=== PATIENT | male | born 1980 | race Two or more races ===

== ENCOUNTER 2018-12-28 08:51 | Emergency (ER) | payer SELFPAY ==
--- NOTE | 2018-12-28 10:05 | ER Document Report ---
ED General - General Chief Complaint: Penile Pain Stated Complaint: PENILE PAIN Primary Care Provider: [facility] [Provider Group] - Follow up as needed - HPI Patient complains to provider of: Penile pain Notes: Patient coming in for evaluation of penile pain. Patient has states ongoing pain with urination along with discharge. Patient states he is sexually active. Patient also states that he is diabetic. Patient denies any other fevers chills nausea vomiting diarrhea. Patient is mostly speaking at this time family is at bedside translating for the patient. - Related Data Allergies/Adverse Reactions: No Known Allergies Allergy (Verified 12/28/18 09:39) Past Medical History - Social History Smoking Status: Never Smoker Chew tobacco use (# tins/day): No Frequency of alcohol use: None Drug Abuse: None Family History: Reviewed & Not Pertinent Patient has suicidal ideation: No Patient has homicidal ideation: No Endocrine Medical History: Reports: Hx Diabetes Mellitus Type 2 Renal/ Medical History: Denies: Hx Peritoneal Dialysis Review of Systems - Review of Systems Constitutional: No symptoms reported EENT: No symptoms reported Cardiovascular: No symptoms reported Respiratory: No symptoms reported Gastrointestinal: No symptoms reported Genitourinary: Other - Penile pain Male Genitourinary: No symptoms reported Musculoskeletal: No symptoms reported Skin: No symptoms reported Hematologic/Lymphatic: No symptoms reported Neurological/Psychological: No symptoms reported -: Yes All other systems reviewed and negative Physical Exam - Vital signs Vitals: Temp Pulse Resp BP Pulse Ox 98.4 F 99 18 146/95 H 97 12/28/18 08:55 12/28/18 08:55 12/28/18 08:55 12/28/18 08:55 12/28/18 08:55 Interpretation: Normal - General General appearance: Appears well, Alert - HEENT Head: Normocephalic, Atraumatic Eyes: Normal Pupils: PERRL - Respiratory Respiratory status: No respiratory distress Chest status: Nontender Breath sounds: Normal Chest palpation: Normal - Cardiovascular Rhythm: Regular Heart sounds: Normal auscultation Murmur: No - Abdominal Inspection: Normal Distension: No distension Bowel sounds: Normal Tenderness: Nontender Organomegaly: No organomegaly - Genitourinary Cremasteric reflex: Normal Scrotum: Normal Notes: Patient uncircumcised there is obvious purulent drainage from around the glans of the penis. Multiple excoriations. Was able to retract the foreskin again showing also to be a balanitis and was discharged multiple excoriations. Patient states excoriations are painful - Back Back: Normal, Nontender - Extremities General upper extremity: Normal inspection, Nontender, Normal color, Normal ROM, Normal temperature General lower extremity: Normal inspection, Nontender, Normal color, Normal ROM, Normal temperature, Normal weight bearing. No: Halley's sign - Neurological Neuro grossly intact: Yes Cognition: Normal Orientation: AAOx4 [place] Coma Scale Eye Opening: Spontaneous [place] Coma Scale Verbal: Oriented [place] Coma Scale Motor: Obeys Commands [place] Coma Scale Total: 15 Speech: Normal Motor strength normal: LUE, RUE, LLE, RLE Sensory: Normal - Psychological Associated symptoms: Normal affect, Normal mood - Skin Skin Temperature: Warm Skin Moisture: Dry Skin Color: Normal Course - Re-evaluation Re-evalutation: 12/28/18 16:54 Patient was treated for gonorrhea chlamydia and trichomonas. Patient more likely has a balanitis due to infection. We will give the patient a dose of Diflucan will have patient administer Lotrimin until the rash is clearing. Patient was educated about control of his diabetes and the need for follow-up. 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 Romain was used for patient's hospital visit - Vital Signs Vital signs: Temp Pulse Resp BP Pulse Ox 98.0 F 90 16 121/87 H 97 12/28/18 12:48 12/28/18 12:48 12/28/18 12:48 12/28/18 12:48 12/28/18 12:48 - Laboratory Result Diagrams: 12/28/18 10:15 12/28/18 10:15 Laboratory results interpreted by me: 12/28/18 12/28/18 12/28/18 10:00 10:09 10:15 RBC 5.58 H Hgb 17.5 H Eosinophils % 8.9 H Absolute Eosinophils 0.7 H Sodium Glucose POC Glucose 358 H Hemoglobin A1c % Calcium Urine Glucose (UA) >=500 H Urine Ketones 20 H 12/28/18 12/28/18 10:15 10:15 RBC Hgb Eosinophils % Absolute Eosinophils Sodium 135.9 L Glucose 342 H POC Glucose Hemoglobin A1c % 11.3 H Calcium 10.3 H Urine Glucose (UA) Urine Ketones Discharge - Discharge Clinical Impression: Balanitis, Penile discharge Diabetes Qualifiers: Diabetes mellitus type: type 2 Diabetes mellitus bobbin marker insulin use: without jail use Diabetes mellitus complication status: without complication Qualified Code(s): E11.9 - Type 2 diabetes mellitus without complications Condition: Good Disposition: HOME, SELF-CARE Instructions: Balanitis ([facility]), Chlamydia ([facility]), Diabetes ([facility]), Glucophage ([facility]), Gonorrhea ([facility]), Trichomonas Infection ([facility]) Additional Instructions: Please follow-up with the clinic provided. Return to the ER symptoms worsen. Prescriptions: Clotrimazole 1% Topical [Lotrimin 1% Topical Soln 10 ml] 1 applic TP BID #1 bottle Metformin HCl [Glucophage 500 mg Tablet] 500 mg PO BID #60 tablet Forms: Return to Work Referrals: [facility] [Provider Group] - Follow up as needed Print Language: Chinese
[2018-12-28] MEDS: NORMAL SALINE 1000 ML 1,000 ML IV PRN ×2 (10:20→11:27)
[2018-12-28 10:29] LABS: APPEARANCE,URINE CLEAR; BILIRUBIN,URINE NEGATIVE (NEGATIVE); COLOR,URINE STRAW; GLUCOSE, URINE >=500 mg/dL (NEGATIVE); KETONES,URINE 20 mg/dL (NEGATIVE); LEUKOCYTE ESTERASE,URINE NEGATIVE (NEGATIVE); NITRITE,URINE NEGATIVE (NEGATIVE); PROTEIN,URINE NEGATIVE (NEGATIVE); URINE SPECIFIC GRAVITY 1.032; UROBILINOGEN,URINE NEGATIVE mg/dL (<2.0)
[2018-12-28 10:49] LABS: ABSOLUTE BASOPHILS # (AUTO) 0.1 10^3/uL (0.0-0.2); ABSOLUTE EOSINOPHILS # (AUTO) 0.7 10^3/uL (0.0-0.6); ABSOLUTE LYMPHOCYTES (AUTO) 1.8 10^3/uL (0.5-4.7); ABSOLUTE MONOCYTES (AUTO) 0.5 10^3/uL (0.1-1.4); ABSOLUTE NEUT (AUTO) 5.1 10^3/uL (1.7-8.2); BASOPHILS % (AUTO) 1.6 % (0-2); EOSINOPHILS % (AUTO) 8.9 % (0-6); HEMOGLOBIN 17.5 g/dL (13.5-17.0); LYMPHOCYTES % (AUTO) 21.9 % (13-45); MEAN CORPUSCULAR HEMOGLOBIN 31.4 pg (27.0-33.4); MEAN CORPUSCULAR HGB CONC 35.7 g/dL (32.0-36.0); MEAN CORPUSCULAR VOLUME 88 fl (80-97); MONOCYTES % (AUTO) 6.5 % (3-13); PLATELET COUNT 182 10^3/uL (150-450); RED BLOOD COUNT 5.58 10^6/uL (4.35-5.55); RED CELL DISTRIBUTION WIDTH 12.1 % (11.5-14.0); SEGMENTED NEUTROPHILS % (AUTO) 61.1 % (42-78); TOTAL CELLS COUNTED % (AUTO) 100 %; WHITE BLOOD COUNT 8.3 10^3/uL (4.0-10.5)
[2018-12-28 11:11] LABS: ANION GAP 14 (5-19); BLOOD UREA NITROGEN 12 mg/dL (7-20); CALCIUM 10.3 mg/dL (8.4-10.2); CARBON DIOXIDE 23 mmol/L (22-30); CHLORIDE 99 mmol/L (98-107); GLUCOSE 342 mg/dL (75-110); POTASSIUM 4.4 mmol/L (3.6-5.0); SODIUM 135.9 mmol/L (137-145)
[2018-12-28] MEDS ORDERED: METRONIDAZOLE 500 MG TABLET PO ONE (11:20)
[2018-12-28] MEDS ORDERED: AZITHROMYCIN 1 GM SUSP PACKET PO ONE (11:20)
[2018-12-28] MEDS ORDERED: FLUCONAZOLE 100 MG TABLET PO ONE (11:20)
[2018-12-28] MEDS ORDERED: CEFTRIAXONE 1 GM/D5W RTU 1 GM/50 ML RTUPB IV ONE (11:44)
[2018-12-28 11:56] LABS: CHLAM PCR NOT DETECTED (NOT DETECT); GON PCR NOT DETECTED (NOT DETECT)
[2018-12-28 12:50] VITALS: BP 121/87
== END 2018-12-28 12:51 | disposition home or self-care (01) ==
LOC: ER 08:51
DX: N48.1 Balanitis (principal); R36.9 Urethral discharge, unspecified; E11.9 Type 2 diabetes mellitus without complications
CPT/HCPCS: 99283; 96361; 96365; 36415; 82962; 85025; 86592; 80048; 81001; 83036; 87491; 87591; Q0144; J7030; J0696